=== PATIENT | male | born 1955 | race Caucasian/White ===

== ENCOUNTER → 2018-09-10 | Outpatient (CLI) | payer BC ==
[~2018-09-10] MED LIST: ASPIRIN E.C.325 MG PO; CEPHALEXIN500 M1 PO; COZAAR100 MG PO; FLOMAX 0.40.4 MG/CAP PO; LEXAPRO 10MG10 MG PO; LORTAB 7.5/5001 TAB; MICARDIS 40MG40 MG PO; NEXIUM 40MG40 MG PO; NORCO 325 MG-51 TAB PO; VANCOCIN H125 MG/CAP PO; VERAPAMIL; ZANTAC PO
== END ==
LOC: COL.RAD 12:48
DX: K21.9 Gastro-esophageal reflux disease without esophagitis (principal); K44.9 Diaphragmatic hernia without obstruction or gangrene

== ENCOUNTER → 2019-10-22 | Outpatient (CLI) | payer BC | LOC: COL.RAD 10:47 | DX: Z01.812 Encounter for preprocedural laboratory examination (principal); R91.1 Solitary pulmonary nodule; I25.10 Atherosclerotic heart disease of native coronary artery without angina pectoris | CPT/HCPCS: Q9967 ==

== ENCOUNTER 2020-01-06 06:56 | Day surgery (SDC) | payer BC ==
[2020-01-06] VITALS (11 sets, daily range): BP systolic 103–133; BP diastolic 51–70; PULSE 48–555; TEMP 97.8
[~2020-01-06] VITALS: Ht 177.8 cm; Wt 121.2 kg
[2020-01-06 08:27] LABS: HEMATOCRIT 44.3 % (42.0-52.0); HEMOGLOBIN 15.2 g/dl (13.5-18.0); MEAN CELL VOLUME 88 fl (80.0-100.0); MEAN CORPUSCULAR HEMOGLOBIN 30 pg (27.0-31.0); MEAN CORPUSCULAR HGB CONC 34 g/dl (33.0-37.0); MEAN PLATELET VOLUME 8.9 fl (7.4-10.4); PLATELET COUNT 263 K/mm3 (130-400); RED BLOOD COUNT 5.01 M/mm3 (4.20-5.60); REDCELL DISTRIBUTION WIDTH-CV 13.1 % (11.5-14.5)
[2020-01-06] MEDS ORDERED: PRIL40 PO (08:27)
[2020-01-06 08:28] LABS: PROTHROMBIN TIME 10.9 SECONDS (9.7-12.8)
[2020-01-06] MEDS ORDERED: BENTYL 20MG20 MG/TAB PO (08:28)
[2020-01-06] MEDS ORDERED: LIPITOR 40MG TA40 MG PO (08:29)
[2020-01-06] MEDS ORDERED: ASPIRIN E.C. 8181 MG PO (08:30)
[2020-01-06] MEDS ORDERED: PROBIOTIC ACID1 EAC3 PO (08:30)
[2020-01-06 08:31] LABS: PARTIAL THROMBOPLASTIN TIME 32.1 SECONDS (26.0-37.0)
[2020-01-06 08:33] LABS: CALCIUM 9.1 mg/dL (8.4-10.2); CREATININE, serum 0.9 (0.66-1.25); POTASSIUM 4.4 mmol/L (3.4-5.0)
--- NOTE | 2020-01-06 09:11 | NUR ---
SEE MERGE DOCUMENTATION FOR MEDICATION ADMINISRATION TIMES AND INTRA/POST PROCEDURE SEDATION ASSESSMENTS. RIGHT HAND BARBEAU TEST POSITIVE.
--- NOTE | 2020-01-06 10:34 | NUR ---
Back from [employer]. Right groin dressing CD&I and right radial Tband with 16 cc air CD&I with good pulses and cap refill < 3 secs
--- NOTE | 2020-01-06 11:40 | NUR ---
Two 5/325 mg Logan given for lower back pain. Will monitor
--- NOTE | 2020-01-06 14:00 | NUR ---
Right groin CD&I. Right radial Tband with 16 cc air released and pressure dressing applied. INT discontinued intact. Discharge intructions given. transferred to private car by cass
== END 2020-01-06 14:00 | disposition home or self-care (01) ==
LOC: COL.CAR 06:56
PROVIDERS: Internal Medicine Cardiovascular Disease
DX: R06.00 Dyspnea, unspecified (principal); I25.118 Atherosclerotic heart disease of native coronary artery with other forms of angina pectoris; I10 Essential (primary) hypertension; I77.810 Thoracic aortic ectasia; G47.33 Obstructive sleep apnea (adult) (pediatric); Z87.891 Personal history of nicotine dependence; Z79.82 Long term (current) use of aspirin; Z79.899 Other long term (current) drug therapy
CPT/HCPCS: J1644; J2250; J3010; Q9967

== ENCOUNTER → 2023-12-27 | Outpatient (CLI) | payer MEDICARE, OTHER ==
[~2023-12-27] MED LIST changes: +ASPIRIN E.C. 8181 MG PO; +B-12 500 MCG PO; +BENTYL 20MG20 MG/TAB PO; +COMPLETE MULTI1 TAB PO; +LIPITOR 40MG TA40 MG PO; +NORVASC 5MG5 MG/TAB PO; +PRIL40 PO; +PROBIOTIC ACID1 EAC3 PO; +PROTONIX 40MG T40 MG PO; +SYNTHROID0.075 MG/T PO
== END ==
LOC: COL.RAD 09:14
DX: Z13.6 Encounter for screening for cardiovascular disorders (principal)